=== PATIENT | female | born 1970 | race Caucasian/White ===

== ENCOUNTER 2022-01-24 16:56 | Observation (INO) ==
[2022-01-24 18:16] LABS: Basophils # 0.1 K/mcL (0.0-0.2); Basophils % 0.7 %; Eosinophils # 0.1 K/mcL (0.0-0.6); Eosinophils % 1.7 %; Hematocrit 44.4 % (35.3-44.9); Hemoglobin 14.8 g/dL (11.5-15.4); Immature Granulocytes % 0.4 % (0-4); Lymphocytes # 2.6 K/mcL (0.6-4.6); Lymphocytes % 32.5 %; Mean Corpuscular HGB Conc 33.3 g/dL (31.6-35.5); Mean Corpuscular Hemoglobin 29.9 pg (28.0-33.3); Mean Corpuscular Volume 89.7 fL (83.0-100.0); Mean Platelet Volume 9.7 fL (9.4-12.4); Monocytes # 0.7 K/mcL (0.0-1.3); Monocytes % 8.4 %; Neutrophils # 4.6 K/mcL (1.6-8.9); Platelet Count 196 K/mcL (140-400); Red Blood Count 4.95 M/mcL (3.82-4.97); Red Cell Distribution Width 13.8 % (11.5-14.5); Segmented Neutrophils % 56.3 %; White Blood Count 8.1 K/mcL (4.3-11.1)
[2022-01-24] MEDS ORDERED: Nitroglycerin 0.4 MG TAB.SUBL SL PRN (18:20)
[2022-01-24] MEDS ORDERED: Aspirin 81 MG TAB.CHEW PO ONE (18:20)
[2022-01-24 18:53] LABS: BUN/Creatinine Ratio 9 (6-26); Blood Urea Nitrogen 6 mg/dL (6-20); Calcium 8.9 mg/dL (8.6-10.3); Carbon Dioxide 25 mEq/L (23-29); Chloride 103 mEq/L (98-107); Glucose 88 mg/dL (70-105); Osmolality,Calculated 279 (280-300); Potassium 3.3 mEq/L (3.5-5.1); Sodium 136 mEq/L (136-145); Troponin I < 0.03 ng/mL (< 0.04); eGFR For African Americans > 60 (> 60); eGFR For Non-African Americans > 60 (> 60)
[2022-01-24] MEDS ORDERED: Morphine Sulfate 2 MG/ML SYRINGE IVP ONE (18:53)
[2022-01-24] MEDS ORDERED: Perflutren Lipid Microsphere 1.3 ML in 0.9 % Sodium Chloride 8.7 ML IVP PRN (20:40)
[2022-01-24] MEDS ORDERED: Morphine Sulfate 2 MG/ML SYRINGE IVP PRN (20:49)
[2022-01-24] MEDS ORDERED: Ondansetron 4 MG/2 ML VIAL IVP PRN (20:51)
[2022-01-24] MEDS ORDERED: Acetaminophen 325 MG TABLET PO PRN (20:51)
[2022-01-24] MEDS ORDERED: Potassium Chloride Elixir 20 MEQ/15 ML UDC PO ONE (20:52)
[2022-01-24] MEDS: *HR* Heparin 5,000 UNIT/ML VIAL SQ SCH (21:20)
[2022-01-24 23:12] VITALS: TEMP 97.9
[2022-01-25 02:21] LABS: Hematocrit 40.8 % (35.3-44.9); Hemoglobin 13.9 g/dL (11.5-15.4); Mean Corpuscular HGB Conc 34.1 g/dL (31.6-35.5); Mean Corpuscular Hemoglobin 30.2 pg (28.0-33.3); Mean Corpuscular Volume 88.7 fL (83.0-100.0); Mean Platelet Volume 9.9 fL (9.4-12.4); Platelet Count 196 K/mcL (140-400); Red Cell Distribution Width 13.8 % (11.5-14.5)
[2022-01-25 02:22] LABS: Estimated Average Glucose 114 mg/dl; Hemoglobin A1C 5.6 %
[2022-01-25 02:28] LABS: BUN/Creatinine Ratio 12 (6-26); Blood Urea Nitrogen 8 mg/dL (6-20); Calcium 8.8 mg/dL (8.6-10.3); Carbon Dioxide 26 mEq/L (23-29); Chloride 106 mEq/L (98-107); Chol/HDL Ratio 10.3 (0-4.9); Cholesterol 268 mg/dL (< 200); Glucose 88 mg/dL (70-105); HDL Cholesterol 26 mg/dL (40-59); Magnesium 1.8 mg/dL (1.6-2.6); Osmolality,Calculated 282 (280-300); Potassium 3.9 mEq/L (3.5-5.1); Sodium 137 mEq/L (136-145); Triglycerides 458 mg/dL (< 150); eGFR For African Americans > 60 (> 60); eGFR For Non-African Americans > 60 (> 60)
[2022-01-25 02:31] LABS: Troponin I < 0.03 ng/mL (< 0.04)
[2022-01-25 02:45] LABS: Thyroid Stimulating Hormone 2.711 mcIU/mL (0.340-5.600)
[2022-01-25 03:30] VITALS: BP 116/53; PULSE 85; O2SAT 94
[2022-01-25] MEDS: *HR* Heparin 5,000 UNIT/ML VIAL SQ SCH (05:32)
[2022-01-25] MEDS ORDERED: Regadenoson 0.4 MG/5 ML SYRINGE IVP ONE (05:58)
[2022-01-25] MEDS ORDERED: Loratadine 10 MG TABLET PO SCH (09:00)
[2022-01-25] MEDS ORDERED: Gabapentin 100 MG CAPSULE PO SCH (09:00)
[2022-01-25] MEDS ORDERED: Aspirin Enteric Coated 81 MG Tablet PO SCH (09:00)
== END 2022-01-25 12:10 | disposition home or self-care (01) ==
LOC: EMEROOARM 16:56 → 3BNU 16:56 → SUATTDRO 20:01 → 3BNU 20:39
PROVIDERS: ADMIT Student in an Organized Health Care Education/Training Program; ATTEND Nurse Practitioner

== ENCOUNTER 2022-01-27 15:48 | Observation (INO) ==
[2022-01-27] MEDS ORDERED: Morphine Sulfate 2 MG/ML SYRINGE IVP ONE ×2 (16:08→16:45)
[2022-01-27] MEDS ORDERED: Aspirin 325 MG TABLET PO ONE (16:39)
[2022-01-27] MEDS: Nitroglycerin 0.4 MG TAB.SUBL SL PRN ×3 (16:44→16:56)
[2022-01-27 16:54] LABS: Alanine Aminotransferase 11 Units/L (7-52); Albumin 4.1 g/dL (3.5-5.7); Albumin/Globulin Ratio 1.4 (1.1-2.2); Alkaline Phosphatase 117 Units/L (34-104); Aspartate Amino Transferase 15 Units/L (13-39); BUN/Creatinine Ratio 14 (6-26); Bilirubin,Total 0.3 mg/dL (0.3-1.0); Blood Urea Nitrogen 9 mg/dL (6-20); Calcium 9.3 mg/dL (8.6-10.3); Carbon Dioxide 24 mEq/L (23-29); Chloride 104 mEq/L (98-107); Glucose 118 mg/dL (70-105); Magnesium 1.6 mg/dL (1.6-2.6); Osmolality,Calculated 282 (280-300); Potassium 3.2 mEq/L (3.5-5.1); Sodium 136 mEq/L (136-145); Total Protein 7.1 g/dL (6.4-8.9); Troponin I < 0.03 ng/mL (< 0.04); eGFR For African Americans > 60 (> 60); eGFR For Non-African Americans > 60 (> 60)
[2022-01-27 16:58] LABS: Basophils # 0.1 K/mcL (0.0-0.2); Basophils % 0.4 %; Eosinophils # 0.2 K/mcL (0.0-0.6); Hematocrit 45.3 % (35.3-44.9); Hemoglobin 15.4 g/dL (11.5-15.4); Immature Granulocytes % 0.3 % (0-4); Lymphocytes # 3.5 K/mcL (0.6-4.6); Mean Corpuscular Volume 88.3 fL (83.0-100.0); Mean Platelet Volume 9.7 fL (9.4-12.4); Monocytes # 0.8 K/mcL (0.0-1.3); Monocytes % 5.3 %; Platelet Count 220 K/mcL (140-400); Red Blood Count 5.13 M/mcL (3.82-4.97); Red Cell Distribution Width 13.4 % (11.5-14.5)
[2022-01-27 17:01] LABS: Neutrophils # 10.6 K/mcL (1.6-8.9); White Blood Count 15.1 K/mcL (4.3-11.1)
[2022-01-27] MEDS ORDERED: *HR* Heparin 5,000 UNIT/ML VIAL IVP PRN ×2 (17:24)
[2022-01-27] MEDS ORDERED: *HR* Heparin 5,000 UNIT/ML VIAL IVP ONE (17:24)
[2022-01-27] MEDS ORDERED: Naloxone 0.4 MG/ML INJ IVP PRN (17:26)
[2022-01-27] MEDS ORDERED: Acetaminophen 325 MG TABLET PO PRN (17:26)
[2022-01-27] MEDS ORDERED: SUMAtriptan succinate 25 MG TABLET PO PRN (17:29)
[2022-01-27] MEDS ORDERED: Heparin 25,000UNIT/250ML 1/2NS 25,000 UNIT/250 ML IV.SOLN IVC SCH (17:30)
[2022-01-27] MEDS ORDERED: Acetaminophen IV 1,000 MG/100 ML BAG IVPB ONE (17:47)
[2022-01-27] MEDS ORDERED: Ipratropium/Albuterol Neb 3 ML IH PRN (17:48)
[2022-01-27] MEDS ORDERED: Isovue-370 500 ML BOTTLE IVP ONE (17:57)
[2022-01-27 17:59] LABS: Heparin anti-factor XA UFH 0.04 IU/mL (0.30-0.70); Prothrombin Time 11.6 Seconds (9.4-12.1)
[2022-01-27] MEDS ORDERED: 0.9 % Sodium Chloride 1,000 ML IVC SCH (18:00)
[2022-01-27 18:01] LABS: Activated Partial Thrombo Time 34.8 Seconds (26.0-36.0)
[2022-01-27] MEDS: Magnesium Oxide 400 MG TABLET PO SCH (20:02)
[2022-01-27] MEDS ORDERED: Ketorolac 30 MG/ML VIAL IVP ONE (20:56)
[2022-01-28] MEDS: Nitroglycerin 0.4 MG TAB.SUBL SL PRN ×2 (01:15→01:20)
[2022-01-28] MEDS: Ondansetron 4 MG/2 ML VIAL IVP PRN ×2 (01:15→08:47)
[2022-01-28] MEDS ORDERED: Morphine Sulfate 2 MG/ML SYRINGE IVP ONE (03:30)
[2022-01-28 03:57] LABS: Basophils % 0.4 %; Eosinophils % 0.1 %; Hematocrit 41.5 % (35.3-44.9); Immature Granulocytes % 0.3 % (0-4); Lymphocytes # 1.7 K/mcL (0.6-4.6); Lymphocytes % 16.6 %; Mean Corpuscular HGB Conc 33.3 g/dL (31.6-35.5); Mean Corpuscular Hemoglobin 29.4 pg (28.0-33.3); Mean Corpuscular Volume 88.5 fL (83.0-100.0); Mean Platelet Volume 10.4 fL (9.4-12.4); Monocytes # 0.5 K/mcL (0.0-1.3); Monocytes % 5.3 %; Neutrophils # 7.9 K/mcL (1.6-8.9); Platelet Count 228 K/mcL (140-400); Red Blood Count 4.69 M/mcL (3.82-4.97); Red Cell Distribution Width 13.7 % (11.5-14.5); Segmented Neutrophils % 77.3 %; White Blood Count 10.2 K/mcL (4.3-11.1)
[2022-01-28 03:58] LABS: Hemoglobin 13.8 g/dL (11.5-15.4)
[2022-01-28 04:27] LABS: BUN/Creatinine Ratio 17 (6-26); Blood Urea Nitrogen 10 mg/dL (6-20); Calcium 9.2 mg/dL (8.6-10.3); Carbon Dioxide 26 mEq/L (23-29); Chloride 103 mEq/L (98-107); Glucose 120 mg/dL (70-105); Magnesium 1.7 mg/dL (1.6-2.6); Osmolality,Calculated 286 (280-300); Phosphorous 4.1 mg/dL (2.7-4.5); Sodium 138 mEq/L (136-145); Troponin I 3.12 ng/mL (< 0.04); eGFR For African Americans > 60 (> 60); eGFR For Non-African Americans > 60 (> 60)
[2022-01-28] MEDS ORDERED: Morphine Sulfate 2 MG/ML SYRINGE IVP PRN (05:27)
[2022-01-28] MEDS ORDERED: *HR* Dextrose 50 % in Water (Syg) 50 ML SYRINGE IVP PRN (05:30)
[2022-01-28] MEDS ORDERED: Dextrose Gel 15 GM/37.5 ML TUBE PO PRN ×2 (05:30)
[2022-01-28] MEDS ORDERED: D5% in Water 1,000 ML IVC PRN (05:30)
[2022-01-28 05:56] LABS: Amphetamine Screen,Urine Negative ng/mL (Cutoff=1000); Barbiturate Screen,Urine Positive ng/mL (Cutoff=200); Benzodiazepines Screen,Urine Negative ng/mL (Cutoff=200); Cannabinoid Screen,Urine Negative ng/mL (Cutoff = 50); Cocaine Screen,Urine Negative ng/mL (Cutoff= 300); Opiate Screen,Urine Positive ng/mL (Cutoff=300); Phencyclidine Screen,Urine Negative ng/mL (Cutoff=25)
[2022-01-28] MEDS ORDERED: *HR* Promethazine 25 MG/ML VIAL IM ONE (06:16)
[2022-01-28 07:04] LABS: Chol/HDL Ratio 7.3 (0-4.9); Cholesterol 226 mg/dL (< 200); HDL Cholesterol 31 mg/dL (40-59); LDL Cholesterol,Calculated 155 mg/dL (< 100); Triglycerides 199 mg/dL (< 150)
[2022-01-28 07:55] LABS: Thyroid Stimulating Hormone 0.876 mcIU/mL (0.340-5.600)
[2022-01-28] MEDS: Gabapentin 100 MG CAPSULE PO SCH (08:47)
[2022-01-28] MEDS: Magnesium Oxide 400 MG TABLET PO SCH ×2 (08:47→19:51)
[2022-01-28] MEDS: Loratadine 10 MG TABLET PO SCH (08:47)
[2022-01-28] MEDS: Aspirin 81 MG TAB.CHEW PO SCH (08:47)
[2022-01-28] MEDS ORDERED: Perflutren Lipid Microsphere 1.3 ML in 0.9 % Sodium Chloride 8.7 ML IVP PRN (09:04)
[2022-01-28] MEDS ORDERED: Heparin 1,000 UNITS/500 mL 500 ML ONE (09:14)
[2022-01-28] MEDS ORDERED: *HR* FentaNYL (PF) 100 MCG/2 ML VIAL ONE (09:14)
[2022-01-28] MEDS ORDERED: ISOVUE-370 200 ML INFUS..BTL ONE (09:14)
[2022-01-28] MEDS ORDERED: 0.9 % Sodium Chloride 2,000 ML ONE (09:14)
[2022-01-28] MEDS ORDERED: *HR* Heparin 10,000 UNIT/10 ML VIAL ONE (09:14)
[2022-01-28] MEDS ORDERED: *HR* Midazolam HCl 2 MG/2 ML VIAL ONE (09:14)
[2022-01-28] MEDS ORDERED: Nitroglycerin 1,000 MCG/5 ML VIAL IV ONE (09:15)
[2022-01-28 09:22] LABS: Estimated Average Glucose 111 mg/dl; Hemoglobin A1C 5.5 %
[2022-01-28] MEDS ORDERED: Tirofiban 5 MG/100 mL 5 MG/100 ML VIAL IV ONE (09:54)
[2022-01-28] MEDS ORDERED: *HR* Ticagrelor 90 MG TABLET ONE (09:58)
[2022-01-28] MEDS: *HR* Ticagrelor 90 MG TABLET PO SCH (19:51)
[2022-01-28] MEDS ORDERED: Ketorolac 30 MG/ML VIAL IVP ONE (20:56)
[2022-01-28] MEDS ORDERED: *HR* OxyCODONE Immed Rel 5 MG TABLET PO ONE (23:14)
[2022-01-28] MEDS ORDERED: Acetaminophen/Butalbital/CaffeineTABLET PO ONE (23:14)
[2022-01-29 03:20] LABS: Hematocrit 40.7 % (35.3-44.9); Hemoglobin 13.8 g/dL (11.5-15.4)
[2022-01-29 03:35] LABS: BUN/Creatinine Ratio 16 (6-26); Blood Urea Nitrogen 10 mg/dL (6-20); eGFR For African Americans > 60 (> 60); eGFR For Non-African Americans > 60 (> 60)
[2022-01-29 06:40] VITALS: BP 109/71; PULSE 69; TEMP 97.8; O2SAT 95
[2022-01-29] MEDS ORDERED: lisinopriL 10 MG TABLET PO SCH (09:00)
[2022-01-29] MEDS: *HR* Ticagrelor 90 MG TABLET PO SCH (10:24)
[2022-01-29] MEDS: Gabapentin 100 MG CAPSULE PO SCH (10:24)
[2022-01-29] MEDS: Loratadine 10 MG TABLET PO SCH (10:25)
[2022-01-29] MEDS: Magnesium Oxide 400 MG TABLET PO SCH (10:31)
[2022-01-29] MEDS: Aspirin 81 MG TAB.CHEW PO SCH (10:31)
== END 2022-01-29 12:00 | disposition home or self-care (01) ==
LOC: 2NENU 15:48 → EMEROOARM 15:48 → SUATTDRO 17:48 → 2NENU 19:27
PROVIDERS: ADMIT Internal Medicine; ATTEND Internal Medicine

== ENCOUNTER 2022-03-05 20:16 | Inpatient (IN) ==
[2022-03-05] MEDS ORDERED: Nitroglycerin 0.4 MG TAB.SUBL SL ONE ×2 (20:35→20:45)
[2022-03-05] MEDS ORDERED: Ondansetron 4 MG/2 ML VIAL ONE (20:36)
[2022-03-05] MEDS ORDERED: *HR* Heparin 5,000 UNIT/ML VIAL IVP PRN ×2 (20:37)
[2022-03-05] MEDS ORDERED: *HR* Heparin 5,000 UNIT/ML VIAL IVP ONE (20:37)
[2022-03-05] MEDS ORDERED: Ondansetron 4 MG/2 ML VIAL IVP ONE (20:38)
[2022-03-05] MEDS: Heparin 25,000UNIT/250ML 1/2NS 25,000 UNIT/250 ML IV.SOLN IVC SCH (20:49)
[2022-03-05] MEDS ORDERED: Morphine Sulfate 2 MG/ML SYRINGE IVP STA ×2 (20:49→21:14)
[2022-03-05 20:50] LABS: Basophils # 0.1 K/mcL (0.0-0.2); Basophils % 0.8 %; Eosinophils # 0.2 K/mcL (0.0-0.6); Eosinophils % 1.8 %; Hematocrit 43.4 % (35.3-44.9); Immature Granulocytes % 0.2 % (0-4); Lymphocytes # 3.9 K/mcL (0.6-4.6); Lymphocytes % 42.2 %; Mean Corpuscular HGB Conc 34.6 g/dL (31.6-35.5); Mean Corpuscular Hemoglobin 30.3 pg (28.0-33.3); Mean Corpuscular Volume 87.7 fL (83.0-100.0); Mean Platelet Volume 9.9 fL (9.4-12.4); Monocytes # 0.6 K/mcL (0.0-1.3); Monocytes % 6.3 %; Neutrophils # 4.5 K/mcL (1.6-8.9); Platelet Count 280 K/mcL (140-400); Red Blood Count 4.95 M/mcL (3.82-4.97); Red Cell Distribution Width 13.1 % (11.5-14.5); Segmented Neutrophils % 48.7 %; White Blood Count 9.3 K/mcL (4.3-11.1)
[2022-03-05 20:57] LABS: INR 1.1
[2022-03-05 20:59] LABS: Activated Partial Thrombo Time 32.5 Seconds (26.0-36.0)
[2022-03-05 21:03] LABS: BUN/Creatinine Ratio 13 (6-26); Blood Urea Nitrogen 9 mg/dL (6-20); Calcium 9.2 mg/dL (8.6-10.3); Carbon Dioxide 20 mEq/L (23-29); Chloride 107 mEq/L (98-107); Glucose 134 mg/dL (70-105); Osmolality,Calculated 287 (280-300); Potassium 3.3 mEq/L (3.5-5.1); Sodium 138 mEq/L (136-145); eGFR For African Americans > 60 (> 60); eGFR For Non-African Americans > 60 (> 60)
[2022-03-05 21:04] LABS: Troponin I < 0.03 ng/mL (< 0.04)
[2022-03-05 21:08] LABS: Heparin anti-factor XA UFH < 0.04 IU/mL (0.30-0.70)
[2022-03-05 21:13] LABS: Creatine Kinase 54 Units/L (30-223); Lipase 85 Units/L (11-82)
[2022-03-05] MEDS ORDERED: *HR* Ticagrelor 90 MG TABLET ONE (21:15)
[2022-03-05] MEDS ORDERED: *HR* Ticagrelor 90 MG TABLET PO ONE (21:17)
[2022-03-05] MEDS ORDERED: Heparin 1,000 UNITS/500 mL 1,000 ML ONE (21:31)
[2022-03-05] MEDS ORDERED: 0.9 % Sodium Chloride 2,000 ML ONE (21:31)
[2022-03-05] MEDS ORDERED: Nitroglycerin 1,000 MCG/5 ML VIAL IV ONE (21:31)
[2022-03-05] MEDS ORDERED: *HR* Midazolam HCl 2 MG/2 ML VIAL ONE (21:31)
[2022-03-05] MEDS ORDERED: *HR* Heparin 10,000 UNIT/10 ML VIAL ONE (21:31)
[2022-03-05] MEDS ORDERED: *HR* FentaNYL (PF) 100 MCG/2 ML VIAL ONE (21:31)
[2022-03-05] MEDS ORDERED: Iopamidol - 370 200 ML INFUS..BTL ONE (21:31)
[2022-03-05] MEDS ORDERED: Tirofiban 12.5 MG/250ML 12.5 MG/250 ML BAG ONE (22:07)
[2022-03-05] MEDS ORDERED: Perflutren Lipid Microsphere 1.3 ML in 0.9 % Sodium Chloride 8.7 ML IVP PRN (22:45)
[2022-03-05] MEDS ORDERED: Naloxone 0.4 MG/ML INJ IVP PRN (22:45)
[2022-03-05] MEDS: *HR* Acetaminophen w/Cod 300-30 mg 1 TAB TABLET PO PRN (23:39)
[2022-03-06 05:08] LABS: Basophils # 0.1 K/mcL (0.0-0.2); Basophils % 0.6 %; Eosinophils % 0.3 %; Hematocrit 39.2 % (35.3-44.9); Immature Granulocytes % 0.2 % (0-4); Lymphocytes # 3.2 K/mcL (0.6-4.6); Lymphocytes % 26.1 %; Mean Corpuscular HGB Conc 33.7 g/dL (31.6-35.5); Mean Corpuscular Hemoglobin 29.3 pg (28.0-33.3); Mean Corpuscular Volume 87.1 fL (83.0-100.0); Mean Platelet Volume 9.9 fL (9.4-12.4); Monocytes # 0.8 K/mcL (0.0-1.3); Monocytes % 6.6 %; Neutrophils # 8.2 K/mcL (1.6-8.9); Platelet Count 262 K/mcL (140-400); Red Cell Distribution Width 13.1 % (11.5-14.5); Segmented Neutrophils % 66.2 %; White Blood Count 12.3 K/mcL (4.3-11.1)
[2022-03-06 05:18] LABS: Hemoglobin 13.2 g/dL (11.5-15.4)
[2022-03-06 05:29] LABS: BUN/Creatinine Ratio 18 (6-26); Blood Urea Nitrogen 9 mg/dL (6-20); Calcium 8.8 mg/dL (8.6-10.3); Carbon Dioxide 21 mEq/L (23-29); Chloride 108 mEq/L (98-107); Cholesterol 163 mg/dL (< 200); Glucose 96 mg/dL (70-105); HDL Cholesterol 27 mg/dL (40-59); LDL Cholesterol,Calculated 90 mg/dL (< 100); Osmolality,Calculated 283 (280-300); Potassium 3.6 mEq/L (3.5-5.1); Sodium 137 mEq/L (136-145); Triglycerides 229 mg/dL (< 150); eGFR For African Americans > 60 (> 60); eGFR For Non-African Americans > 60 (> 60)
[2022-03-06 06:13] LABS: Estimated Average Glucose 114 mg/dl; Hemoglobin A1C 5.6 %
[2022-03-06] MEDS: Aspirin 81 MG TAB.CHEW PO SCH (08:54)
[2022-03-06] MEDS: Gabapentin 100 MG CAPSULE PO SCH (08:54)
[2022-03-06] MEDS: Magnesium Oxide 400 MG TABLET PO SCH ×2 (08:54→20:53)
[2022-03-06] MEDS: lisinopriL 10 MG TABLET PO SCH (08:54)
[2022-03-06] MEDS: Loratadine 10 MG TABLET PO SCH (08:55)
[2022-03-06] MEDS: *HR* Ticagrelor 90 MG TABLET PO SCH ×2 (08:55→20:54)
[2022-03-06] MEDS: methocarbamoL 750 MG TABLET PO SCH ×3 (08:55→20:54)
[2022-03-06] MEDS ORDERED: Acetaminophen/Butalbital/CaffeineTABLET PO PRN (09:00)
[2022-03-06 09:18] LABS: Bilirubin,Urine Negative (Negative); Blood,Urine Trace (Negative); Clarity,Urine Clear (Clear); Color,Urine Colorless (Yellow); Glucose,Urine (UA) Normal (Normal); Ketones,Urine Negative (Negative); Leukocyte Esterase,Urine Negative (Negative); Nitrite,Urine Negative (Negative); Protein,Urine Negative (Neg-Trace); RBC,Urine 0-3 per hpf (0-3); Specific Gravity,Urine 1.015 (1.010-1.025); Squamous Epithelial Cell,Urine Few per hpf (None-Few); Urobilinogen,Urine Normal (Normal); WBC,Urine 0-3 per hpf (0-3)
[2022-03-06 09:46] LABS: Amphetamine Screen,Urine Negative ng/mL (Cutoff=1000); Barbiturate Screen,Urine Positive ng/mL (Cutoff=200); Benzodiazepines Screen,Urine Positive ng/mL (Cutoff=200); Cannabinoid Screen,Urine Negative ng/mL (Cutoff = 50); Cocaine Screen,Urine Negative ng/mL (Cutoff= 300); Opiate Screen,Urine Positive ng/mL (Cutoff=300); Phencyclidine Screen,Urine Negative ng/mL (Cutoff=25)
[2022-03-06] MEDS: *HR* Acetaminophen w/Cod 300-30 mg 1 TAB TABLET PO PRN (15:30)
[2022-03-06] MEDS: Heparin 25,000UNIT/250ML 1/2NS 25,000 UNIT/250 ML IV.SOLN IVC SCH (19:15)
[2022-03-06] MEDS ORDERED: Acetaminophen/Butalbital/CaffeineTABLET PO ONE (21:57)
[2022-03-07 04:16] VITALS: O2SAT 99
[2022-03-07 07:30] VITALS: TEMP 97.9
[2022-03-07 07:42] VITALS: BP 110/74
[2022-03-07] MEDS: lisinopriL 10 MG TABLET PO SCH (07:44)
[2022-03-07] MEDS: Aspirin 81 MG TAB.CHEW PO SCH (07:44)
[2022-03-07] MEDS: *HR* Ticagrelor 90 MG TABLET PO SCH (07:45)
[2022-03-07] MEDS: Magnesium Oxide 400 MG TABLET PO SCH (07:45)
[2022-03-07] MEDS: Loratadine 10 MG TABLET PO SCH (07:45)
[2022-03-07] MEDS: Gabapentin 100 MG CAPSULE PO SCH (07:45)
[2022-03-07 08:33] VITALS: PULSE 74
== END 2022-03-07 09:06 | disposition home or self-care (01) | DRG 190 ==
LOC: ICNU 20:16 → EMEROOARM 20:16 → ICNU 21:54
PROVIDERS: ADMIT Internal Medicine; ATTEND Internal Medicine